=== PATIENT | female | born 1995 | race Two or more races ===

== ENCOUNTER 2020-12-01 21:31 | Emergency (ER) | payer BC, OTHER ==
[~2020-12-01] VITALS: Ht 160 cm; Wt 87.7 kg
[2020-12-01] MEDS ORDERED: LORazepam 2 MG/ML, 1ML ONE (21:59)
[2020-12-01] MEDS ORDERED: SODIUM CHLORIDE FLUSH 10ML SYR IVF ONE (22:00)
[2020-12-01] MEDS ORDERED: LORazepam 2 MG/ML, 1ML IVPush ONE (22:00)
[2020-12-01] MEDS ORDERED: SODIUM CHLORIDE 0.9% 1,000ML IVBOLUS ONE (22:00)
[2020-12-01] MEDS ORDERED: LORazepam 2 MG/ML, 1ML IV ONE (22:00)
--- NOTE | 2020-12-01 22:16 | NUR ---
PT WHEELED BACK FROM TRIAGE. STATES SHES THINKS SHES HAVING A PANIC ATTACK. PT CALM & COOPERATIVE, TREMORS NOTED. STATES ONSET WAS ~1.5 HRS AGO. 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 PIV ESBT, LABS DRAWN & SENT. MEDS PER MAR. BLANKET PROVIDED. LIGHTS TURNED DOWN. CALL LIGHT INREACH. WILL CTM.
[2020-12-01 22:22] LABS: MEAN CORPUSCULAR HEMOGLOBIN 26.5 pg (27.0-34.8); MEAN CORPUSCULAR HGB CONC 33.4 g/dL (32.4-35.8); MEAN PLATELET VOLUME 7.6 fL (7.4-10.4); PLATELET COUNT 359 x10^3/uL (130-400); RED BLOOD COUNT 5.13 x10^6/uL (3.82-5.3); RED CELL DISTRIBUTION WIDTH 13.6 % (9.6-15.2)
[2020-12-01 22:24] LABS: ALBUMIN 3.8 g/dL (3.4-5.0); ANION GAP 9 mmol/L (5-15); CALCIUM 8.7 mg/dL (8.5-10.1); CHLORIDE 106 mmol/L (98-107)
[2020-12-01 22:36] LABS: ALANINE AMINOTRANSFERASE 26 U/L (12-78); ALKALINE PHOSPHATASE 86 U/L (45-117); BILIRUBIN,TOTAL 0.7 mg/dL (0.2-1.0); CREATININE 1.05 mg/dL (0.55-1.02); T4 (THYROXINE) 9.9 mcg/dL (4.8-13.9); TOTAL PROTEIN 7.7 g/dL (6.4-8.2)
[2020-12-01] MEDS ORDERED: POTASSIUM CHLORIDE 20 MEQ TAB.ER.PRT ONE (22:42)
[2020-12-01 22:46] VITALS: BP 109/78
[2020-12-01 22:51] LABS: MD YES
[2020-12-01 22:54] LABS: <PLATELET ESTIMATE> ADEQUATE; <PLT MORPHOLOGY> NORMAL PLT MORPH; <RBC MORPHOLOGY> NORMAL; BAND#(MANUAL) 0.15 x10^3/uL; BANDS%(MANUAL) 1 % (0-7); LYMPH#(MANUAL) 4.44 x10^3/uL (1-3.4); LYMPHS% (MANUAL) 29 % (22-44); MONOS#(MANUAL) 0.61 x10^3/uL (0.3-2.7); MONOS% (MANUAL) 4 % (2-9); REACTIVE LYMPHS # (MANUAL) 0.15 x10^3/uL (0-0); REACTIVE LYMPHS % (MANUAL) 1 % (0-0); SEG#(MANUAL) 9.95 x10^3/uL (1.8-6.8); SEGS% (MANUAL) 65 % (42-75)
[2020-12-01] MEDS ORDERED: POTASSIUM CHLORIDE 20 MEQ TAB.ER.PRT PO ONE (23:00)
== END 2020-12-01 23:21 | disposition home or self-care (01) ==
LOC: ED 23:09
DX: F41.1 Generalized anxiety disorder (principal); R06.4 Hyperventilation; F12.10 Cannabis abuse, uncomplicated; D72.829 Elevated white blood cell count, unspecified; R00.0 Tachycardia, unspecified; R06.02 Shortness of breath; R06.00 Dyspnea, unspecified; E87.6 Hypokalemia
CPT/HCPCS: 36415; 71045; 80053; 84436; 84443; 84703; 85025; 93005; 96361; 96374; 99285; J2060; J7030